=== PATIENT | female | born 1955 | race Caucasian/White ===

== ENCOUNTER 2022-04-13 20:30 | Observation (INO) | payer MEDICARE, OTHER ==
[~2022-04-13] VITALS: Ht 157.5 cm; Wt 72.0 kg
[2022-04-13] MEDS ORDERED: CELEXA40 M1 PO (23:16)
[2022-04-13] MEDS ORDERED: ASPIR 8181 M1 PO (23:17)
[2022-04-13] MEDS ORDERED: PREG150 (23:18)
[2022-04-13] MEDS ORDERED: OXYCODONE-ACET1 EAC2 PO (23:19)
[2022-04-13] MEDS ORDERED: OMEP20ER PO (23:23)
[2022-04-13] MEDS ORDERED: NAPR220 PO (23:24)
[2022-04-14 00:18] LABS: Hemoglobin 7.3 g/dL (11.5-16.0)
--- NOTE | 2022-04-14 02:43 | NUR ---
CALL TO HOSPITALIST GINA REGARDING HYPOTENSION NOTIFICATION ACTUALLY MADE BY IT SPECIALISTBRAD DIETZ VIA TEXT MESSAGE PT CONTINUES TO BE HYPOTENSIVE WITH MAPS IN THE 50S-LOW 60S INTERMITTENTLY. PT IS ASYMPTOMATIC. DENIES DIZZINESS OR LIGHTHEADEDNESS. PREVIOUSLY TOLERATED GETTING UP TO BEDSIDE COMMODE WHEN MAP WAS 72. NORMAL SALINE INFUSING AT 75 mLs PER HOUR ORDERED. HEMOGLOBIN/HEMATOCRIT ARE 7.3/23
--- NOTE | 2022-04-14 05:36 | NUR ---
CALL TO HOSPITALIST GINA PT COMPLAINING OF PERSISTENT HEADACHE 06/08. PER PT, FENTANYL PROVIDES SOME RELIEF FOR ABOUT AN HOUR. REQUEST FOR ADDITIONAL ANALGESIC.
[2022-04-14 08:41] LABS: BASOPHILS ABSOLUTE AUTO 0.05 K/mm3 (0.00-0.23); BASOPHILS PERCENT AUTO 1 % (0-2); EOSINOPHILS PERCENT AUTO 2 % (0-6); Hematocrit 26.8 % (33.0-51.0); Hemoglobin 8.5 g/dL (11.5-16.0); IMMATURE GRAN ABSOLUTE AUTO 0.07 K/mm3 (0.00-0.10); IMMATURE GRAN PERCENT AUTO 1 % (0-1); LYMPHOCYTES ABSOLUTE AUTO 1.64 K/mm3 (0.84-5.20); LYMPHOCYTES PERCENT AUTO 20 % (21-46); MONOCYTES ABSOLUTE AUTO 0.42 K/mm3 (0.16-1.47); MONOCYTES PERCENT AUTO 5 % (4-13); Mean Corpuscular HGB 28.2 pg (26.0-34.0); Mean Corpuscular HGB Conc 31.7 g/dL (31.5-36.5); Mean Corpuscular Volume 89 fL (80-100); Mean Platelet Volume 10.9 fL (9.1-12.4); NEUTROPHILS PERCENT AUTO 71 % (41-73); Platelet Count 298 K/mm3 (150-400); RDW Coefficient Variation 15.4 % (11.7-14.2); RDW Standard Deviation 49.4 fL (35.1-46.3); Red Blood Cell Count 3.01 M/mm3 (3.80-5.20); White Blood Cell Count 8.18 K/mm3 (4.00-11.30)
[2022-04-14 08:57] LABS: Albumin, Blood 2.6 g/dL (3.4-5.0); Albumin/Globulin Ratio 1.1 (0.8-1.8); Bilirubin, Total 1.6 mg/dL (0.1-1.0); Bun/Creatinine Ratio 30.5 (12.0-20.0); Calcium, Blood 7.9 mg/dL (8.5-10.1); Creatinine, Blood 0.66 mg/dL (0.40-1.00); Globulin, Blood 2.4 g/dL (2.2-4.0); Potassium, Blood 3.4 mmol/L (3.5-5.5)
[2022-04-14 12:15] LABS: Hematocrit 27.7 % (33.0-51.0)
[2022-04-14 15:59] LABS: SARS-Cov-2 (COVID-19) PCR, MMC NEGATIVE (NEGATIVE)
--- NOTE | 2022-04-14 16:34 | NUR ---
PATIENT IS ALERT AND ORIENTED AND COOPERATIVE WITH CARE. C/O 05/08 HEADACHE MEDICATED PER EMAR. PATIENT IS NPO FOR UPPER ENDOSCOPY THIS EVENING. FAMILY VISITED TODAY. SBA TO BSC. WILL CONTINUE TO MONITOR
[2022-04-14 20:16] LABS: Hematocrit 25.5 % (33.0-51.0); Hemoglobin 8.3 g/dL (11.5-16.0)
--- NOTE | 2022-04-14 20:35 | NUR ---
PT TO ENDOSCOPY LAB FOR UPPER GI SCOPE. PROTONIX DRIP ON HOLD PER REQUEST, IV SALINE LOCKED. TRANSPORTED VIA CART BY BRAD SCHAFFER.
--- NOTE | 2022-04-14 21:09 | NUR ---
04/14/22 0020 Sergio Vanessa HISTORY, CHART, MEDICATIONS AND ALLERGIES REVIEWED BEFORE START OF PROCEDURE. PATIENT CONFIRMS NPO STATUS AND AGREES WITH SCHEDULED PROCEDURE. 3-LEAD EKG REVIEWED WITH PHYSICIAN PRIOR TO START OF PROCEDURE. MONITOR INTACT WITH CONTINUOUS PULSE OXIMETRY,CAPNOGRAPHY, 3-LEAD EKG, INTERMITTENT BP. SUPPLEMENTAL O2 TO BE TITRATED THROUGHOUT PROCEDURE TO MAINTAIN O2 SATURATION ABOVE 90%. PATIENT DETERMINED TO BE ASA APPROPRIATE FOR PROPOFOL SEDATION PRIOR TO START OF PROCEDURE BY DR. CHANG.
--- NOTE | 2022-04-14 21:25 | NUR ---
PATIENT RETURNED TO PCU 7 FROM ENDOSCOPY LAB. PER REPORT, NO ACTIVE BLEEDING FOUND. SOME EROSIVE SITES IN STOMACH. PT IS ALERT & ORIENTED, REQUESTING SOMETHING TO EAT. DENIES PAIN OTHER THAN PERSISTENT HEADACHE AT THIS TIME.
[2022-04-15 03:50] LABS: Hematocrit 24.3 % (33.0-51.0); Hemoglobin 8.1 g/dL (11.5-16.0)
[2022-04-15 04:21] LABS: Albumin, Blood 2.4 g/dL (3.4-5.0); Bilirubin, Total 0.4 mg/dL (0.1-1.0); Bun/Creatinine Ratio 13.8 (12.0-20.0); Calcium, Blood 8.4 mg/dL (8.5-10.1); Creatinine, Blood 0.73 mg/dL (0.40-1.00); Globulin, Blood 2.4 g/dL (2.2-4.0); Potassium, Blood 3.5 mmol/L (3.5-5.5); Total Protein, Blood 4.8 g/dL (6.4-8.2)
[2022-04-15 12:35] LABS: Hematocrit 25.7 % (33.0-51.0); Hemoglobin 8.3 g/dL (11.5-16.0)
--- NOTE | 2022-04-15 13:19 | NUR ---
PER DR. LIMA, NO NEED TO COLLECT SAMPLE FOR H. PYLORI DETECTION BEFORE PT DISCHARGE, WILL PROCEED WITH DISCHARGE.
[2022-04-15] MEDS ORDERED: PANT40 PO (13:36)
--- NOTE | 2022-04-15 16:54 | NUR ---
DISCHARGE: PACKET PRINTED AND PT EDUCATED. MEDS FA[facility]ED TO [facility]. PT LEFT UNIT AT ABOUT 1645 VIA WHEELCHAIR WITH MANAGEMENT AIDE AND FAMILY
== END 2022-04-15 16:30 | disposition home or self-care (01) ==
LOC: PCU 20:30
PROVIDERS: Family Medicine; Student in an Organized Health Care Education/Training Program; ADMIT Internal Medicine
PROC: 0DJ08ZZ Inspection of Upper Intestinal Tract, Via Natural or Artificial Opening Endoscopic (ICD-10-PCS; principal; 2022-04-14 20:00)
DX: K25.9 Gastric ulcer, unspecified as acute or chronic, without hemorrhage or perforation (principal); K21.9 Gastro-esophageal reflux disease without esophagitis; D62 Acute posthemorrhagic anemia; R51.9 Headache, unspecified; G62.9 Polyneuropathy, unspecified; Z86.73 Personal history of transient ischemic attack (TIA), and cerebral infarction without residual deficits; Z88.0 Allergy status to penicillin; Z88.2 Allergy status to sulfonamides; Z88.8 Allergy status to other drugs, medicaments and biological substances; Z20.822 Contact with and (suspected) exposure to COVID-19
CPT/HCPCS: 36415; 36430; 80053; 83605; 83690; 83880; 85014; 85018; 85025; 86850; 86900; 86901; 86920; 96361; 96374; 96375; 96376; 97116; 97162; A9270; C9113; G0378; J2405; J2704; J3010; J7030; J7040; P9016; U0004